=== PATIENT | male | born 1985 | race Caucasian/White ===

== ENCOUNTER 2020-03-20 16:46 | Emergency (ER) | payer SELFPAY ==
[~2020-03-20] VITALS: Ht 180.3 cm; Wt 84.1 kg
[2020-03-20] MEDS ORDERED: PERTUSS(ACELL),DIPH,TET VAC/PF 0.5 ML VIAL IM ONE (17:15)
[2020-03-20] MEDS ORDERED: IBUPROFEN 800 MG TABLET PO ONE (17:15)
[2020-03-20 17:54] VITALS: BP 122/92
== END 2020-03-20 17:50 | disposition home or self-care (01) ==
LOC: EMS 16:46
DX: S01.111A Laceration without foreign body of right eyelid and periocular area, initial encounter (principal); F17.210 Nicotine dependence, cigarettes, uncomplicated; F12.90 Cannabis use, unspecified, uncomplicated; V00.131A Fall from skateboard, initial encounter; Y93.89 Activity, other specified; Y92.89 Other specified places as the place of occurrence of the external cause; Y99.8 Other external cause status
CPT/HCPCS: 90471; 90715; 99406